=== PATIENT | female | born 1975 | race Caucasian/White ===

== ENCOUNTER 2018-10-09 22:45 | Emergency (ER) | payer MEDICAID ==
[~2018-10-09] VITALS: Ht 157.5 cm; Wt 70.2 kg
[2018-10-09 22:49] VITALS: Ht 157.5 cm; Wt 70.2 kg
[2018-10-10] MEDS ORDERED: CEPH-443 PO (01:43)
[2018-10-10 01:59] VITALS: BP 115/69; PULSE 64; RESP 18
--- NOTE | 2018-10-11 20:30 | ERD ---
ER Documentation Chief Complaint Chief Complaint vag bleed x 2 days, states 2 months HPI 43-year-old female who is G4, P3 Ab0 last menstrual cycle 07/22/2018, reportedly 8 weeks presents complaining of intermittent vaginal bleeding for the past 1 day. She states she is used about 1 pad per day. She reports spotting and intermittent suprapubic cramping which is moderate in severity. She has not yet had an ultrasound during this . She denies any fevers, chills, abdominal pain, or other symptoms at this time. ROS All systems reviewed and are negative except as per history of present illness. Medications Home Meds Active Scripts Cephalexin* (Keflex*) 500 Mg Capsule, 500 MG PO QID for 5 Days, CAP Prov:RICH FIGUEROA PA-C 10/10/18 Allergies Allergies: Coded Allergies: No Known Drug Allergies (Verified Allergy, Unknown, 10/09/18) PMhx/Soc Medical and Surgical Hx: pt denies Medical Hx, pt denies Surgical Hx Hx Alcohol Use: No Hx Substance Use: No Hx Tobacco Use: No Smoking Status: Never smoker Physical Exam Vitals Vital Signs Date Temp Pulse Resp B/P (MAP) Pulse Ox O2 O2 Flow FiO2 Time Delivery Rate 10/10/18 97.7 64 18 115/69 99 01:59 (84) 10/09/18 97.9 64 18 118/65 98 22:49 (82) Physical Exam Const: No acute distress Head: Atraumatic Eyes: Normal Conjunctiva ENT: Normal External Ears, Nose and Mouth. Neck: Full range of motion. No meningismus. Resp: Clear to auscultation bilaterally Cardio: Regular rate and rhythm, no murmurs Abd: Soft, non tender, non distended. Normal bowel sounds. No suprapubic tenderness palpation. No McBurney's point tenderness. No rebound tenderness or guarding. Skin: No petechiae or rashes Back: No midline or flank tenderness. No CVA tenderness. Ext: No cyanosis, or edema Neur: Awake and alert Psych: Normal Mood and Affect Result Diagram: 10/10/18 0027 10/10/18 002 Results 24 hrs Laboratory Tests Test 10/10/18 00:27 White Blood Count 8.7 10^3/ul Red Blood Count 4.05 10^6/ul Hemoglobin 12.6 g/dl Hematocrit 38.2 % Mean Corpuscular Volume 94.3 fl Mean Corpuscular Hemoglobin 31.1 pg Mean Corpuscular Hemoglobin Concent 33.0 g/dl Red Cell Distribution Width 12.1 % Platelet Count 263 10^3/UL Mean Platelet Volume 11.1 fl Immature Granulocytes % 0.200 % Neutrophils % 62.3 % Lymphocytes % 31.2 % Monocytes % 4.6 % Eosinophils % 1.2 % Basophils % 0.5 % Nucleated Red Blood Cells % 0.0 /100WBC Immature Granulocytes # 0.020 10^3/ul Neutrophils # 5.4 10^3/ul Lymphocytes # 2.7 10^3/ul Monocytes # 0.4 10^3/ul Eosinophils # 0.1 10^3/ul Basophils # 0.0 10^3/ul Nucleated Red Blood Cells # 0.0 10^3/ul Urine Color YELLOW Urine Clarity SLIGHTLY CLOUDY Urine pH 5.0 Urine Specific [place] 1.028 Urine Ketones NEGATIVE mg/dL Urine Nitrite NEGATIVE mg/dL Urine Bilirubin NEGATIVE mg/dL Urine Urobilinogen NEGATIVE mg/dL Urine Leukocyte Esterase 2+ Michel/ul Urine Microscopic RBC 9 /HPF Urine Microscopic WBC 17 /HPF Urine Squamous Epithelial Cells FEW /HPF Urine Bacteria FEW /HPF Urine Mucus FEW /HPF Urine Hemoglobin 2+ mg/dL Urine Glucose NEGATIVE mg/dL Urine Total Protein NEGATIVE mg/dl Sodium Level 141 mmol/L Potassium Level 4.1 mmol/L Chloride Level 106 mmol/L Carbon Dioxide Level 26 mmol/L Anion Gap 9 Blood Urea Nitrogen 20 mg/dl Creatinine 0.76 mg/dl Est Glomerular Filtrat Rate mL/min > 60 mL/min Glucose Level 96 mg/dl Calcium Level 8.8 mg/dl Total Bilirubin 0.3 mg/dl Direct Bilirubin 0.00 mg/dl Indirect Bilirubin 0.3 mg/dl Aspartate Amino Transf (AST/SGOT) 19 IU/L Alanine Aminotransferase (ALT/SGPT) 31 IU/L Alkaline Phosphatase 66 IU/L Total Protein 7.9 g/dl Albumin 4.2 g/dl Globulin 3.70 g/dl Albumin/Globulin Ratio 1.13 Beta HCG, Quantitative 2899.8 mIU/ml [place] [id number] Radiology Main Line: [phone] DIAGNOSTIC IMAGING REPORT Patient: LEILA RIZZO : 1975 Age: 43 Sex: F MR #: [id number] DOS: 10/10/18 0017 Ordering MD: RICH FIGUEROA PA-C Location: [facility] Room/Bed: PROCEDURE: US OB < 14 weeks. CLINICAL INDICATION: Vaginal bleeding TECHNIQUE: Multiple sonographic images of the pelvis were obtained. The images were reviewed on a PACS workstation. COMPARISON: None FINDINGS: There is a cystic structure within the endometrium presumed to represent a gestational sac with mean diameter 1.7 cm on transvaginal imaging. Size corresponds to an estimated age of 6 weeks 3 days. No pole or yolk sac is identified. The right ovary measures 2.8 x 1.5 x 1.8 cm and demonstrates appropriate vascularity. Left ovary is not seen. No adnexal lesions identified. No significant pelvic free fluid. IMPRESSION: 1. Findings consistent with nonviable and blighted ovum. Cystic structure within the endometrium presumed to represent a gestational sac, mean diameter 1.7 cm with no visible yolk sac or embryo. Recommend correlation with serum beta HCG levels. 2. Right ovary is unremarkable. Left ovary not seen. RPTAT: [facility] Physician Katlyn Date Time Electronically viewed and signed by Physician Katlyn on 10/10/2018 01:17 xB/ CC: RICH FIGUEROA PA-C [id number] Procedures/MDM 43-year-old female presents to the emergency department with history, physical examination, work-up most consistent with missed . Much lower suspicion for ectopic , tubo-ovarian abscess, PID, ovarian torsion, or other emergencies. Patient was also found to have findings consistent with urinary tract infection on urinalysis. No evidence to suggest sepsis, pyelonephritis, acute surgical abdomen, or other emergencies. Patient is stable and appropriate for discharge and 24 to 48-hour follow-up with her ART PSYCHOTHERAPIST OR THERAPIST physician. She states she will be able to make an appointment tomorrow. She was advised to return to the emergency department immediately for any new or worsening or concerning symptoms. Shared my medical decision making with the patient and she understands and agrees with plan. Departure Diagnosis: Primary Impression: Missed Additional Impression: UTI (urinary tract infection) Condition: Fair Patient Instructions: Understanding Urinary Tract Infections (UTIs), Missed Miscarriage [facility]: [facility] Usted se guadarrama hecho un examen mdico de control que le indica que no est en gavin condicin que requiera tratamiento urgente en el Departamento de Emergencia. Un estudio ms profundo y el tratamiento de hidalgo condicin pueden esperar sin ningn riesgo hasta que usted sea atendida/o en el consultorio de hidalgo mdico o gavin clnica. Es responsabilidad suya arreglar gavin cody para el seguimiento del rachel. MANEJO DE CONDICIONES NO URGENTES EN EL FUTURO 1) Si usted tiene un mdico de atencin primaria: Usted debera llamar a hidalgo mdico de atencin primaria antes de venir al departamento de emergencia. Despus de las horas de consultorio, hidalgo doctor o hidalgo asociado/a est disponible por telfono. El mdico o enfermero de gladys en el servicio telefnico puede asesorarle por eveline medio para atender el problema, o rachel contrario se puede programar gavin cody. 2) Si usted no tiene un mdico de atencin primaria: Llame al mdico o clnica de referencia que aparece abajo oralia las horas de consultorio para hacer gavin cody para que le vean. CLINICAS: [facility] [phone] [facility] [phone] [facility] [phone] [place] [place] [phone] [place] [facility] [phone] [address] [facility] [phone] [place] ART PSYCHOTHERAPIST OR THERAP[place] [address] [facility] [address] [place] [address] OFFICE FAX , LINDY [address] [place] [address] [address], [place] [address] [place] [address] [address] VIEIRA, [facility] [address], [address] [facility] [address] [address], [facility] [address] [place] [address] [facility] [address] [place] [address] [facility] [id number] - [address] HANEY, MICHAEL [address], [place] [address] [address] [place]A, [place] [address] [facility]. [address], [place] [address] [address] FERNANDEZ, [place] [address] [place], [place] [address] Additional Instructions: Llame al doctor MAANA y dhruv gavin CODY PARA DENTRO DE 1-2 BOWER.Dgale a la secretaria que nosotros le instruimos hacer esta cody.Avise o llame si hidalgo condicin se empeora antes de la cody. Regresa aqui si peor o no mejor. RICH FIGUEROA PA-C Oct 11, 2018 20:30
== END 2018-10-10 02:00 | disposition home or self-care (01) ==
LOC: FTE 22:45
DX: O02.1 Missed abortion (principal); Z3A.08 8 weeks gestation of pregnancy
CPT/HCPCS: 36415; 76801; 76817; 80053; 81001; 84702; 85025; 86900; 86901; Z7502